=== PATIENT | female | born 1970 | race Caucasian/White ===

== ENCOUNTER 2021-04-06 10:43 | Emergency (ER) | payer BC ==
[2021-04-06 11:13] LABS: BARBITURATE SCREEN,URINE NEGATIVE (NEGATIVE); BENZODIAZEPINES SCREEN,URINE NEGATIVE (NEGATIVE); EDDP,URINE SCREEN NEGATIVE (NEGATIVE); TCA SCREEN,URINE NEGATIVE (NEGATIVE); THC SCREEN,URINE 50 NG/ML NEGATIVE (NEGATIVE)
[2021-04-06 11:16] LABS: BUPRENORPHINE SCREEN,URINE NEGATIVE (NEGATIVE)
[2021-04-06 11:38] LABS: ANION GAP 10.1 meq/L (7-15); CHLORIDE,CL 106 mmol/L (98-107); SODIUM,NA 142 mmol/L (136-145)
[2021-04-06] MEDS ORDERED: LORazepam 1 MG Tab PO ONE (11:48)
--- NOTE | 2021-04-06 12:45 | EDM.PDOC ---
ED HPI GENERAL MEDICAL PROBLEM - General Chief Complaint: General Stated Complaint: nausea, dizzy, anxiety, thirsty, body aches Time Seen by Provider: 04/06/21 10:50 Source of Information: Reports: Patient History Limitations: Reports: No Limitations - History of Present Illness INITIAL COMMENTS - FREE TEXT/NARRATIVE: Patient comes to ER with multiple complaints. These include intermittent dizziness/lightheaded feeling, nausea, anxiety. Complains that the anxiety comes in waves. Feels like she is drinking more water lately. Also complains of muscle aches, more pronounced in arms. Came to ER as she was worried about having possible thyroid storm as she was told by clinic last week that her TSH was very low and thus her supplemental thyroid dose too high. She did cut her dose in half the past week and did not take it today. Feels cold sensitive. Hair is breaking more easily. Has sister with history of Bishop's She gets nauseated easily. Was on gabapentin for aches and it helped but then she discontinued due to nausea. Started on Lyrica, now having some nausea with that since dose increased. Similar issue with CBD oil, initially did well but then stopped due to nausea. She tried calling her psychiatric clinical nurse specialist last week multiple times but received no answer. She tried calling [facility] locally today but unable to get a provider to call her back this morning so she elected to come to ER. Anxious and tearful upon arrival. Jittery. Has been having muscle aches for awhile. The other complaints started the last few weeks. Reports negative Lyme testing. Patient notes that she eats anti-inflammatory diet free of gluten/dairy/processed foods. - Related Data Allergies Allergy/AdvReac Type Severity Reaction Status Date / Time chlorhexidine Allergy Hives Verified 04/06/21 10:51 Home Meds: Home Meds Acetaminophen [Tylenol] 650 mg PO Q4HR PRN 02/26/21 [History] Diclofenac Epolamine [Flector] 1 patch TOP DAILY 02/26/21 [History] Diclofenac Sodium [Voltaren 1% Gel] 1 applic TOP ASDIRECTED PRN 02/26/21 [History] Ibuprofen 400 mg PO Q6HR PRN 02/26/21 [History] Non-Formulary Medication [NF Drug] 1 tab PO DAILY 02/26/21 [History] tiZANidine [Zanaflex] 1 mg PO Q12HR 10/07/21 [History] Diclofenac Sodium/Misoprostol [Diclofenac-Misoprost 75-0.2 mg] 1 tab PO BID 02/20 01/10 [History] Pregabalin [Lyrica] 75 mg PO BID 03/26/21 [History] Past Medical History HEENT History: Reports: Allergic Rhinitis Musculoskeletal History: Reports: Fibromyalgia (potentially) Psychiatric History: Reports: Anxiety Endocrine/Metabolic History: Reports: Hypothyroidism Social & Family History - Tobacco Use Tobacco Use Status *Q: Never Tobacco User - Caffeine Use Caffeine Use: Reports: None - Alcohol Use Alcohol Use History: No - Recreational Drug Use Recreational Drug Use: No Drug Use in Last 12 Months: No ED ROS GENERAL - Review of Systems Review Of Systems: See Below Constitutional: Reports: No Symptoms HEENT: Reports: No Symptoms Respiratory: Reports: No Symptoms Cardiovascular: Reports: Lightheadedness. Denies: Chest Pain, Blood Pressure Problem, Claudication, Dyspnea on Exertion, Edema, Orthopnea, Palpitations, PND, Syncope GI/Abdominal: Reports: Nausea. Denies: Abdominal Pain, Black Stool, Bloody Stool, Constipation, Diarrhea, Decreased Appetite, Distension, Vomiting : Reports: No Symptoms Musculoskeletal: Reports: Muscle Pain (diffuse). Denies: Joint Pain, Joint Swelling Skin: Reports: No Symptoms Neurological: Reports: Dizziness. Denies: Confusion, Headache, Numbness, Paresthesia, Seizure, Syncope, Tingling, Trouble Speaking, Weakness, Change in Speech, Gait Disturbance, Other Psychiatric: Reports: Anxiety Hematologic/Lymphatic: Reports: No Symptoms Immunologic: Reports: Seasonal Allergy ED EXAM, GENERAL - Physical Exam Exam: See Below Exam Limited By: No Limitations General Appearance: Alert, WD/WN, Anxious Eye Exam: Bilateral Eye: EOMI, PERRL Ears: Normal External Exam, Normal Canal, Hearing Grossly Normal, Normal TMs Nose: Normal Inspection. No: Nasal Deformity, Nasal Swelling, Nasal Drainage Throat/Mouth: Normal Inspection, Normal Lips, Normal Oropharynx, Normal Voice, No Airway Compromise Head: Atraumatic, Normocephalic Neck: Normal Inspection, Supple, Non-Tender, Full Range of Motion. No: Lymphadenopathy (L), Lymphadenopathy (R) Respiratory/Chest: No Respiratory Distress, Lungs Clear, Normal Breath Sounds, No Accessory Muscle Use, Chest Non-Tender Cardiovascular: Regular Rate, Rhythm, No Edema, No Murmur GI/Abdominal: Normal Bowel Sounds, Soft, Non-Tender, No Distention (Female) Exam: Deferred Rectal (Female) Exam: Deferred Back Exam: Normal Inspection Extremities: Normal Inspection, Normal Range of Motion, Non-Tender, No Pedal Edema, Normal Capillary Refill Neurological: Alert, Oriented, CN II-XII Intact, Normal Cognition, Normal Gait, No Motor/Sensory Deficits Psychiatric: Anxious Skin Exam: Warm, Dry, Intact, Normal Color #1 Interpretation EKG Date: 04/06/21 Time: 11:10 Rhythm: NSR Rate (Beats/Min): 62 [place]: Normal P-Wave: Present QRS: Normal ST-T: Normal QT: Normal Course - Orders/Labs/Meds Labs: Laboratory Tests 04/06/21 04/06/21 04/06/21 Range/Units 10:25 10:25 11:06 WBC 9.2 (4.0-10.2) K/uL RBC 4.87 (3.77-5.09) M/uL Hgb 15.6 H (11.7-15.5) g/dL Hct 45.4 (34.0-46.0) % MCV 93.2 (84.0-98.0) fL MCH 32.0 (28.2-33.3) pg MCHC 34.4 (31.7-36.0) g/dL RDW 12.5 (11.2-14.1) % Plt Count 239 (150-350) K/uL Neut % (Auto) 68.5 (45.0-80.0) % Lymph % (Auto) 18.0 (10.0-50.0) % [place] % (Auto) 13.2 (2.0-14.0) % Eos % (Auto) 0.2 (0.0-5.0) % Baso % (Auto) 0.1 (0.0-2.0) % Neut # (Auto) 6.32 (1.40-7.00) K/uL Lymph # (Auto) 1.66 (0.50-3.50) K/uL [place] # (Auto) 1.22 H (0.00-1.00) K/uL Eos # (Auto) 0.02 (0.00-0.50) K/uL Baso # (Auto) 0.01 (0.00-0.20) K/uL Sodium (136-145) mmol/L Potassium (3.5-5.1) mmol/L Chloride (98-107) mmol/L Carbon Dioxide (21.0-32.0) mmol/L Anion Gap (7-15) meq/L BUN (7-18) mg/dL Creatinine (0.51-1.17) mg/dL Est Cr Clr Drug Dosing Estimated GFR (MDRD) mL/min Glucose (70-99) mg/dL Calcium (8.5-10.1) mg/dL Magnesium (1.8-2.4) mg/dL Total Bilirubin (0.2-1.0) mg/dL AST (15-37) U/L ALT (12-78) U/L Alkaline Phosphatase (46-116) IU/L Total Protein (6.4-8.2) g/dL Albumin (3.4-5.0) g/dL Free T4 (0.76-1.46) ng/dL TSH, Ultra Sensitive (0.358-3.740) mIU/mL Specimen Type Urinvoid Urine Color Light yellow Urine Appearance Clear Urine pH 7.0 (5.0-9.0) Ur Specific [place] 1.010 (1.005-1.030) Urine Protein Negative (NEGATIVE) mg/dL Urine Glucose (UA) Negative (NEGATIVE) mg/dL Urine Ketones Negative (NEGATIVE) mg/dL Urine Occult Blood Negative (NEGATIVE) Urine Nitrite Negative (NEGATIVE) Urine Bilirubin Negative (NEGATIVE) Urine Urobilinogen 0.2 (0.2-1.0) E.U./dL Ur Leukocyte Esterase Negative (NEGATIVE) Urine Opiates Screen Negative (NEGATIVE) Ur Buprenorphine Scrn Negative (NEGATIVE) Ur Oxycodone Screen Negative (NEGATIVE) Ur EDDP (Meth Metab) Negative (NEGATIVE) Ur Barbiturates Screen Negative (NEGATIVE) Ur Tricyclics Screen Negative (NEGATIVE) Ur Amphetamine Screen Negative (NEGATIVE) U Methamphetamines Scrn Negative (NEGATIVE) Urine MDMA Screen Negative (NEGATIVE) U Benzodiazepines Scrn Negative (NEGATIVE) U Cocaine Metab Screen Negative (NEGATIVE) U Marijuana (THC) Screen Negative (NEGATIVE) SARS-CoV-2 RNA (MARINA) (NEGATIVE) 04/06/21 04/06/21 Range/Units 11:06 11:47 WBC (4.0-10.2) K/uL RBC (3.77-5.09) M/uL Hgb (11.7-15.5) g/dL Hct (34.0-46.0) % MCV (84.0-98.0) fL MCH (28.2-33.3) pg MCHC (31.7-36.0) g/dL RDW (11.2-14.1) % Plt Count (150-350) K/uL Neut % (Auto) (45.0-80.0) % Lymph % (Auto) (10.0-50.0) % [place] % (Auto) (2.0-14.0) % Eos % (Auto) (0.0-5.0) % Baso % (Auto) (0.0-2.0) % Neut # (Auto) (1.40-7.00) K/uL Lymph # (Auto) (0.50-3.50) K/uL [place] # (Auto) (0.00-1.00) K/uL Eos # (Auto) (0.00-0.50) K/uL Baso # (Auto) (0.00-0.20) K/uL Sodium 142 (136-145) mmol/L Potassium 4.1 (3.5-5.1) mmol/L Chloride 106 (98-107) mmol/L Carbon Dioxide 25.9 (21.0-32.0) mmol/L Anion Gap 10.1 (7-15) meq/L BUN 12 (7-18) mg/dL Creatinine 0.77 (0.51-1.17) mg/dL Est Cr Clr Drug Dosing TNP Estimated GFR (MDRD) > 60 mL/min Glucose 95 (70-99) mg/dL Calcium 8.9 (8.5-10.1) mg/dL Magnesium 2.1 (1.8-2.4) mg/dL Total Bilirubin 0.6 (0.2-1.0) mg/dL AST 12 L (15-37) U/L ALT 21 (12-78) U/L Alkaline Phosphatase 45 L (46-116) IU/L Total Protein 7.7 (6.4-8.2) g/dL Albumin 4.1 (3.4-5.0) g/dL Free T4 0.63 L (0.76-1.46) ng/dL TSH, Ultra Sensitive 1.082 (0.358-3.740) mIU/mL Specimen Type Urine Color Urine Appearance Urine pH (5.0-9.0) Ur Specific [place] (1.005-1.030) Urine Protein (NEGATIVE) mg/dL Urine Glucose (UA) (NEGATIVE) mg/dL Urine Ketones (NEGATIVE) mg/dL Urine Occult Blood (NEGATIVE) Urine Nitrite (NEGATIVE) Urine Bilirubin (NEGATIVE) Urine Urobilinogen (0.2-1.0) E.U./dL Ur Leukocyte Esterase (NEGATIVE) Urine Opiates Screen (NEGATIVE) Ur Buprenorphine Scrn (NEGATIVE) Ur Oxycodone Screen (NEGATIVE) Ur EDDP (Meth Metab) (NEGATIVE) Ur Barbiturates Screen (NEGATIVE) Ur Tricyclics Screen (NEGATIVE) Ur Amphetamine Screen (NEGATIVE) U Methamphetamines Scrn (NEGATIVE) Urine MDMA Screen (NEGATIVE) U Benzodiazepines Scrn (NEGATIVE) U Cocaine Metab Screen (NEGATIVE) U Marijuana (THC) Screen (NEGATIVE) SARS-CoV-2 RNA (MARINA) Negative (NEGATIVE) Meds: Medications Discontinued Medications Generic Name Dose Route Start Last Admin Trade Name Freq PRN Reason Stop Dose Admin Lorazepam 1 mg 04/06/21 11:48 04/06/21 11:59 Lorazepam 1 Mg Tab PO 04/06/21 11:49 1 mg ONETIME ONE Administration - Re-Assessments/Exams Free Text/Narrative Re-Assessment/Exam: 04/06/21 15:49 Patient obviously anxious. Tearful at times. CBC/Chem/mag/UA/drug screen/TSH/T4 ordered. Overall unremarkable except for decreased T4 Ambulated well/moved about easily. Patient given an Ativan. Improved. Call placed to [facility] and patient reviewed with Sarah who has seen the patient in the past. Patient scheduled to see her this afternoon. Patient's provider notes that patient has long standing history of anxiety. This may be an acute exacerbation of the chronic anxiety. We discussed having pt be evaluated for Lyme/co-infections again, in addition to being treated for anxiety. Patient to follow up with endocrine but has normal TSH today and should continue her 1/2 doses of Thyroid until she is re-evaluated and has levels rechecked. No additional intervention performed at ER but patient planned to follow up with Magdalena at her scheduled early afternoon appointment 1/2 hour after discharge. Additional Ativan prescription at the discretion of [facility]. Departure - Departure Time of Disposition: 12:43 Disposition: Home, Self-Care 01 Condition: Good Clinical Impression: Feeling anxious, Feeling poorly - Discharge Information *PRESCRIPTION DRUG MONITORING PROGRAM REVIEWED*: Not Applicable *COPY OF PRESCRIPTION DRUG MONITORING REPORT IN PATIENT JOSEPH: Not Applicable Referrals: Shanell Mckeon PA-C [Primary Care Provider] - Forms: ED Department Discharge Additional Instructions: Follow up with your primary provider at scheduled appointment this afternoon. Look into advanced lyme testing. Follow up as needed if you have worsening problems.
== END 2021-04-06 12:47 | disposition home or self-care (01) ==
LOC: LL.ED 10:43
DX: F41.9 Anxiety disorder, unspecified (principal); E03.9 Hypothyroidism, unspecified; Z79.899 Other long term (current) drug therapy; Z20.822 Contact with and (suspected) exposure to COVID-19; Z88.4 Allergy status to anesthetic agent
CPT/HCPCS: 36415; 80053; 80305-QW; 81003; 83735; 84439; 84443; 85025; 93005; 93010; 99284; 99284-25; A9270-GY; U0002

== ENCOUNTER 2021-04-16 09:45 | Observation (INO) | payer BC ==
[2021-04-16] MEDS ORDERED: fentaNYL 100 MCG/2 ML SDV IVPUSH ONE (09:54)
[2021-04-16] MEDS ORDERED: Diazepam 5 MG Tab PO ONE (09:54)
[2021-04-16] MEDS ORDERED: Ketorolac 30 MG/ML SDV IVPUSH ONE ×2 (09:54→17:04)
[2021-04-16] MEDS: Sodium Chloride 0.9% 10 ML Syringe FLUSH PRN ×2 (10:03→20:37)
[2021-04-16 10:28] LABS: ANION GAP 15.4 meq/L (7-15); CHLORIDE,CL 104 mmol/L (98-107); SODIUM,NA 143 mmol/L (136-145)
[2021-04-16] MEDS ORDERED: Lactated Ringers 1,000 ML IV ONE (11:30)
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
[2021-04-16] MEDS ORDERED: HYDROmorphone 1 MG/ML Syringe IVPUSH ONE (17:04)
[2021-04-16] MEDS ORDERED: Sodium Chloride 0.9% 10 ML Syringe FLUSH PRN (17:05)
[2021-04-16] MEDS ORDERED: Ondansetron 4 MG Tab.DIS PO PRN (17:26)
[2021-04-16] MEDS ORDERED: HYDROmorphone 1 MG/ML Syringe IVPUSH PRN (17:26)
--- NOTE | 2021-04-16 17:37 | PCM.HP.2 ---
H&P History of Present Illness - General Date of Service: 04/16/21 Admit Problem/Dx: Admission Diagnosis/Problem Admission Diagnosis/Problem Acute pain Source of Information: Patient - History of Present Illness Initial Comments - Free Text/Narative: Hailee is a 50 y/o female who returns this evening to the hospital with acute pain in her midchest region that radiates into her left shoulder. Please refer to the ER note from earlier today. Patient has been having ongoing workup for the pain in her left shoulder and upper back/neck region. She was had several steroid injections by pain management in the last couple weeks. Her PCP has ordered MRI studies for her to be done on Tuesday in [place]. Most concerning to he r is that she cannot really relax to rest and then when she tries to take a deep breath, her chest hurts. Today she was given Toradol, Fentanyl, and Diazepam in the ER and her sx i mproved. She had negative lab studies, a negative EKG, and negative CXR. She did go home and tried to manage her sx with various meds that she has at home. She took Valium 10mg po at about 4 pm today and the pain had become unbearable and she just couldn't take it. She is back to the hospital and will admit her to Observation for pain control. Chest Pain Score (Numeric/FACES): 10 - Related Data Allergies/Adverse Reactions: Allergies Allergy/AdvReac Type Severity Reaction Status Date / Time chlorhexidine Allergy Rash Verified 04/16/21 17:33 Sulfa (Sulfonamide Allergy Rash Verified 04/16/21 17:32 Antibiotics) pregabalin [From Lyrica] AdvReac Hallucinati Verified 04/16/21 17:06 ons Home Medications: Home Meds Acetaminophen [Tylenol] 650 mg PO Q4HR PRN 02/26/21 [History] Diclofenac Epolamine [Flector] 1 patch TOP DAILY 02/26/21 [History] Diclofenac Sodium [Voltaren 1% Gel] 1 applic TOP ASDIRECTED PRN 02/26/21 [History] Ibuprofen 400 mg PO Q6HR PRN 02/26/21 [History] Non-Formulary Medication [NF Drug] 1 tab PO DAILY 02/26/21 [History] tiZANidine [Zanaflex] 1 mg PO Q12HR 02/26/21 [History] Diclofenac Sodium/Misoprostol [Diclofenac-Misoprost 75-0.2 mg] 1 tab PO BID 03/09/21 [History] Ketorolac [Toradol] 10 mg PO Q6H PRN 04/09/21 [History] LORazepam [Ativan] 0.5 mg PO Q4H PRN 04/09/21 [History] diazePAM [Valium.] 5 - 10 mg PO ASDIRECTED PRN 04/09/21 [History] Past Medical History HEENT History: Reports: Allergic Rhinitis Musculoskeletal History: Reports: Back Pain, Chronic, Fibromyalgia Neurological History: Reports: Headaches, Chronic, Migraines Psychiatric History: Reports: Anxiety Endocrine/Metabolic History: Reports: Hypothyroidism Social & Family History - Caffeine Use Caffeine Use: Reports: None H&P Review of Systems - Review of Systems: Review Of Systems: See Below General: Reports: No Symptoms HEENT: Reports: No Symptoms Pulmonary: Reports: No Symptoms Cardiovascular: Reports: No Symptoms Gastrointestinal: Reports: No Symptoms Genitourinary: Reports: No Symptoms Musculoskeletal: Reports: Shoulder Pain, Back Pain (Left shoulder/upper back region) Skin: Reports: No Symptoms Psychiatric: Reports: No Symptoms Neurological: Reports: No Symptoms Hematologic/Lymphatic: Reports: No Symptoms Immunologic: Reports: No Symptoms Exam - Exam Exam: See Below - Vital Signs Vital Signs: Last Vital Signs Temp 36.6 C 04/16/21 09:46 Pulse 121 H 04/16/21 09:46 Resp 20 04/16/21 09:46 BP 124/100 H 04/16/21 09:46 Pulse Ox 100 04/16/21 09:46 Weight: 68.039 kg - Exam General: Alert, Oriented (Adult female, appears a bit more comfortbale than she did this AM, but still somewhat anxious.) HEENT: Conjunctiva Clear, Mucosa Moist & [place], Nares Patent Neck: Supple Lungs: Clear to Auscultation, Normal Respiratory Effort, Other (Note mild tenderness over mid-chest region with palpation.) Cardiovascular: Regular Rate, Regular Rhythm GI/Abdominal Exam: Normal Bowel Sounds, Soft (Female) Exam: Deferred Rectal (Female) Exam: Deferred Back Exam: Normal Inspection. No: Paraspinal Tenderness, Vertebral Tenderness Extremities: Normal Inspection, Normal Range of Motion, No Pedal Edema, Normal Capillary Refill Skin: Warm, Dry, Intact Neurological: Cranial Nerves Intact Neuro Extensive - Mental Status: Alert, Oriented x3, Normal Mood/Affect Neuro Extensive - Motor, Sensory, Reflexes: CN II-XII Intact, Normal Gait Psychiatric: Alert, Anxious - Patient Data Lab Results Last 24 hrs: Laboratory Results - last 24 hr 04/16/21 04/16/21 04/16/21 Range/Units 10:05 10:05 10:05 WBC 10.4 H (4.0-10.2) K/uL RBC 4.61 (3.77-5.09) M/uL Hgb 14.9 (11.7-15.5) g/dL Hct 43.2 (34.0-46.0) % MCV 93.7 (84.0-98.0) fL MCH 32.3 (28.2-33.3) pg MCHC 34.5 (31.7-36.0) g/dL RDW 12.7 (11.2-14.1) % Plt Count 324 D (150-350) K/uL Neut % (Auto) 77.7 (45.0-80.0) % Lymph % (Auto) 13.1 (10.0-50.0) % [place] % (Auto) 8.7 (2.0-14.0) % Eos % (Auto) 0.2 (0.0-5.0) % Baso % (Auto) 0.3 (0.0-2.0) % Neut # (Auto) 8.10 H (1.40-7.00) K/uL Lymph # (Auto) 1.37 (0.50-3.50) K/uL [place] # (Auto) 0.91 (0.00-1.00) K/uL Eos # (Auto) 0.02 (0.00-0.50) K/uL Baso # (Auto) 0.03 (0.00-0.20) K/uL Sodium 143 (136-145) mmol/L Potassium 3.8 (3.5-5.1) mmol/L Chloride 104 (98-107) mmol/L Carbon Dioxide 23.6 (21.0-32.0) mmol/L Anion Gap 15.4 H (7-15) meq/L BUN 10 (7-18) mg/dL Creatinine 0.72 (0.51-1.17) mg/dL Est Cr Clr Drug Dosing 85.05 mL/min Estimated GFR (MDRD) > 60 mL/min Glucose 105 H (70-99) mg/dL Calcium 8.9 (8.5-10.1) mg/dL Magnesium 2.0 (1.8-2.4) mg/dL Total Bilirubin 0.9 (0.2-1.0) mg/dL AST 9 L (15-37) U/L ALT 15 (12-78) U/L Alkaline Phosphatase 45 L (46-116) IU/L Troponin I High Sens 8 (<=51) ng/L Total Protein 7.2 (6.4-8.2) g/dL Albumin 4.0 (3.4-5.0) g/dL Result Diagrams: 04/16/21 10:05 04/16/21 10:05 Sepsis Event Note - Evaluation Sepsis Screening Result: No Definite Risk - Focused Exam Vital Signs: Vital Signs Temp Pulse Resp BP Pulse Ox 04/16/21 09:46 36.6 C 121 H 20 124/100 H 100 - Problem List (1) Muscle spasm SNOMED Code(s): 03581307 ICD Code: M62.838 - OTHER MUSCLE SPASM Status: Acute Current Visit: Yes Problem Details: Sx all secondary to comditions discussed, including 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 Pain improved in the ER with meds given this AM. Will admit her to Observation for pain management. Will order scheduled Toradol and prn Dilaudid for the pain. Also will continue the Valium prn. Patient has MRIs scheduled for Tuesday in [place]. Consideration given to IV steroids, but patient questions of she is anxious as a result of all the recent steroid injections that she has had with Pain Management, so will hold off for now on the steroids. (2) Anxiety about health SNOMED Code(s): 025875647 ICD Code: F41.8 - OTHER SPECIFIED ANXIETY DISORDERS Status: Acute Current Visit: Yes Problem Details: Suspect this exacerbates the pain she has. Hydroxyzine ordered. Problem List Initiated/Reviewed/Updated: Yes Orders Last 24hrs: Active Orders 24 hr Category Date Time Status Patient Status [ADT] Routine ADT 04/16/21 17:26 Ordered Ambulate [RC] PER UNIT ROUTINE Care 04/16/21 17:28 Ordered Cardiac Monitoring [RC] Q2HR Care 04/16/21 17:09 Active EKG Documentation Completion [RC] STAT Care 04/16/21 09:54 Active Overnight Pulse Oximetry [RC] Click to Edit Care 04/16/21 17:10 Active Oxygen Therapy [RC] PRN Care 04/16/21 17:26 Ordered Peripheral IV Care [RC] . DIRECTED Care 04/16/21 17:05 Active Up ad Hafsa [RC] ASDIRECTED Care 04/16/21 17:26 Ordered VTE/DVT Education [RC] PER UNIT ROUTINE Care 04/16/21 17:26 Ordered Vital Signs [RC] Q4H Care 04/16/21 17:26 Ordered Regular Diet [DIET] Diet 04/16/21 Dinner Ordered Acetaminophen [TylenoL] Med 04/16/21 17:31 Ordered 650 mg PO Q4HR PRN HYDROmorphone [Dilaudid] Med 04/16/21 17:26 Ordered 0.5 - 1 mg IVPUSH Q2H PRN Ketorolac [Toradol] Med 04/16/21 17:26 Ordered 30 mg IVPUSH Q6H PRN Ondansetron [Zofran ODT] Med 04/16/21 17:26 Ordered 4 mg PO Q4H PRN Ondansetron [Zofran] Med 04/16/21 17:26 Ordered 4 mg IVPUSH Q4H PRN Sodium Chloride 0.9% [Saline Flush] Med 04/16/21 09:54 Active 10 ml FLUSH ASDIRECTED PRN Sodium Chloride 0.9% [Saline Flush] Med 04/16/21 17:05 Active 10 ml FLUSH ASDIRECTED PRN diazePAM [Valium.] Med 04/16/21 17:45 Ordered 5 mg PO Q6H Peripheral IV Insertion Adult [OM.PC] Routine Oth 04/16/21 17:05 Ordered Pulse Oximetry Continuous Monitoring [OM.PC] Routine Oth 04/16/21 17:09 Ordered Saline Lock Insert [OM.PC] Stat Oth 04/16/21 09:54 Ordered Resuscitation Status Routine Resus Stat 04/16/21 17:26 Ordered Medication Orders Acetaminophen (Acetaminophen 325 Mg Tab) 650 mg PO Q4HR PRN PRN Reason: Pain Diazepam (Diazepam 5 Mg Tab) 5 mg PO Q6H BARRIE Hydromorphone HCl (Hydromorphone 1 Mg/Ml Syringe) 0.5 - 1 mg IVPUSH Q2H PRN PRN Reason: Pain (severe 7-10) Ketorolac Tromethamine (Ketorolac 30 Mg/Ml Sdv) 30 mg IVPUSH Q6H PRN PRN Reason: Pain (moderate 4-6) Ondansetron HCl (Ondansetron 4 Mg Tab.Dis) 4 mg PO Q4H PRN PRN Reason: Nausea/Vomiting Ondansetron HCl (Ondansetron 4 Mg/2 Ml Sdv) 4 mg IVPUSH Q4H PRN PRN Reason: Nausea/Vomiting Sodium Chloride (Sodium Chloride 0.9% 10 Ml Syringe) 10 ml FLUSH ASDIRECTED PRN PRN Reason: Keep Vein Open Last Admin: 04/16/21 10:03 Dose: 10 ml Documented by: ANUSHA Sodium Chloride (Sodium Chloride 0.9% 10 Ml Syringe) 10 ml FLUSH ASDIRECTED PRN PRN Reason: Keep Vein Open Assessment/Plan Comment:: Will get patient comfortable and help her rest. Hold off on steroids at this time. Will add in some Hydroxyzine for her anxiety, but is she is having any reaction to the steroids, perhaps the Hydroxyzine will alleviate some of those sx. Caprice Bailon PA-C to assume care of the patient in the AM. - Mortality Measure Prognosis:: Good
[2021-04-16] MEDS: Ondansetron 4 MG/2 ML SDV IVPUSH PRN (17:58)
[2021-04-16] MEDS: Diazepam 5 MG Tab PO SCH ×2 (18:05→22:14)
[2021-04-16] MEDS ORDERED: hydrOXYzine Pamoate 25 MG Cap PO SCH (20:00)
[2021-04-17] MEDS: Diazepam 5 MG Tab PO SCH ×3 (03:38→07:16)
[2021-04-17] MEDS: Acetaminophen 325 MG Tab PO PRN ×3 (06:16→16:04)
[2021-04-17] MEDS: hydrOXYzine Pamoate 25 MG Cap PO PRN ×3 (06:19→13:11)
[2021-04-17] MEDS: Ketorolac 30 MG/ML SDV IVPUSH PRN ×2 (10:46→16:06)
[2021-04-17] MEDS: Sodium Chloride 0.9% 10 ML Syringe FLUSH PRN ×2 (10:47→13:21)
[2021-04-17] MEDS: Ondansetron 4 MG/2 ML SDV IVPUSH PRN (13:21)
--- NOTE | 2021-04-17 15:41 | PCM.DCSUM1 ---
Discharge Summary - Hospital Course Free Text/Narrative:: see below Brief History: Hailee presented to the ED with uncontrolled acute on chronic pain in her left arm. she also stated she had some "chest" pain. EKG negative for acute ischemia, no trop elevation, normal tele throughout stay. She was also having significant anxiety. on admit there were no new test or imaging findings. She was initially discharge home but returned when her pain continued. She was admitted on observation secondary to uncontrolled pain. 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 narcotics and benzodiazepines were discontinued and it was explained that chronic pain is best treated with behavioral modification. Anxiety is best treated with long acting anxiolytic vs ativan. She is amenable to these changes, was thought to be medically stable for discharge and was discharged home on the afternoon of 04/17/21 Diagnosis: Stroke: No Modified [place] Scale: No Symptoms at All Modified Skyler Scale Score: 0 - Discharge Data Discharge Date: 04/17/21 Discharge Disposition: Home, Self-Care 01 Condition: Good - Referral to Home Health Primary Care Physician: PCP Unknown - Discharge Diagnosis/Problem(s) (1) Anxiety about health SNOMED Code(s): 842876288 ICD Code: F41.8 - OTHER SPECIFIED ANXIETY DISORDERS Status: Acute Current Visit: Yes Problem Details: Suspect this exacerbates the pain she has. Hydroxyzine ordered. - Patient Instructions Diet: Usual Diet as Tolerated - Discharge Plan *PRESCRIPTION DRUG MONITORING PROGRAM REVIEWED*: Not Applicable *COPY OF PRESCRIPTION DRUG MONITORING REPORT IN PATIENT JOSEPH: Not Applicable Prescriptions/Med Rec: DULoxetine [Cymbalta] 30 mg PO DAILY #30 cap hydrOXYzine pamoate [Hydroxyzine Pamoate] 50 mg PO TID PRN 30 Days capsule PRN Reason: Anxiety Home Medications: Home Meds Acetaminophen [Tylenol] 650 mg PO Q4HR PRN 02/26/21 [History] Diclofenac Epolamine [Flector] 1 patch TOP DAILY 02/26/21 [History] Diclofenac Sodium [Voltaren 1% Gel] 1 applic TOP ASDIRECTED PRN 02/26/21 [History] Ibuprofen 400 mg PO Q6HR PRN 02/26/21 [History] Non-Formulary Medication [NF Drug] 1 tab PO DAILY 02/26/21 [History] LORazepam [Ativan] 0.5 mg PO Q4H PRN 04/09/21 [History] diazePAM [Valium.] 5 - 10 mg PO ASDIRECTED PRN 04/09/21 [History] L.acidoph,Paracasei, B.lactis [Probiotic] 1 each PO DAILY 04/16/21 [History] Multivitamin 1 each PO DAILY 04/16/21 [History] Non-Formulary Medication [NF Drug] 1 dose PO ASDIRECTED 04/16/21 [History] Non-Formulary Medication [NF Drug] 3 cap PO ASDIRECTED 04/16/21 [History] DULoxetine [Cymbalta] 30 mg PO DAILY #30 cap 04/17/21 [Rx] hydrOXYzine pamoate [Hydroxyzine Pamoate] 50 mg PO TID PRN 30 Days capsule 04/17/21 [Rx] Oxygen Therapy Mode: Room Air Patient Handouts: Muscle Cramps and Spasms, Managing Anxiety, Adult Forms: ED Department Discharge Referrals: Janey Lozano MD [Physician] - - Discharge Summary/Plan Comment DC Time >30 min.: Yes Total # of Minutes for Discharge Time: 60 - General Info Date of Service: 04/17/21 Admission Dx/Problem (Free Text: Admission Diagnosis/Problem Admission Diagnosis/Problem Acute pain Functional Status: Denies: Pain Controlled Numeric/FACES Score: 8 (pain subjective and appears to wax and wane dependent upon level of anxiety present. ) - Review of Systems General: Reports: No Symptoms HEENT: Reports: No Symptoms Pulmonary: Reports: No Symptoms Cardiovascular: Reports: No Symptoms Gastrointestinal: Reports: No Symptoms Musculoskeletal: Reports: Other (left arm and shoulder pain. non reproducible. ) Skin: Reports: No Symptoms Neurological: Reports: No Symptoms Psychiatric: Reports: No Symptoms - Patient Data Vitals - Most Recent: Last Vital Signs Temp 98.8 F 04/17/21 12:00 Pulse 88 04/17/21 12:00 Resp 14 04/17/21 12:00 BP 112/77 04/17/21 12:00 Pulse Ox 98 04/17/21 12:00 Weight - Most Recent: 150 lb Med Orders - Current: Current Medications Acetaminophen (Acetaminophen 325 Mg Tab) 650 mg PO Q4HR PRN PRN Reason: Pain Last Admin: 04/17/21 12:34 Dose: 650 mg Documented by: Hydroxyzine Pamoate (Hydroxyzine Pamoate 25 Mg Cap) 25 mg PO Q6H PRN PRN Reason: Anxiety Last Admin: 04/17/21 13:11 Dose: 25 mg Documented by: Ketorolac Tromethamine (Ketorolac 30 Mg/Ml Sdv) 30 mg IVPUSH Q6H PRN PRN Reason: Pain (moderate 4-6) Last Admin: 04/17/21 10:46 Dose: 30 mg Documented by: Ondansetron HCl (Ondansetron 4 Mg Tab.Dis) 4 mg PO Q4H PRN PRN Reason: Nausea/Vomiting Last Admin: 04/17/21 07:16 Dose: 4 mg Documented by: Ondansetron HCl (Ondansetron 4 Mg/2 Ml Sdv) 4 mg IVPUSH Q4H PRN PRN Reason: Nausea/Vomiting Last Admin: 04/17/21 13:21 Dose: 4 mg Documented by: Sodium Chloride (Sodium Chloride 0.9% 10 Ml Syringe) 10 ml FLUSH ASDIRECTED PRN PRN Reason: Keep Vein Open Last Admin: 04/17/21 13:21 Dose: 10 ml Documented by: Sodium Chloride (Sodium Chloride 0.9% 10 Ml Syringe) 10 ml FLUSH ASDIRECTED PRN PRN Reason: Keep Vein Open Discontinued Medications Diazepam (Diazepam 5 Mg Tab) 10 mg PO ONETIME ONE Stop: 04/16/21 09:55 Last Admin: 04/16/21 10:02 Dose: 10 mg Documented by: Diazepam (Diazepam 5 Mg Tab) 5 mg PO Q6H BARRIE Last Admin: 04/17/21 07:16 Dose: 5 mg Documented by: Fentanyl (Fentanyl 100 Mcg/2 Ml Sdv) 100 mcg IVPUSH ONETIME ONE Stop: 04/16/21 09:55 Last Admin: 04/16/21 09:59 Dose: 100 mcg Documented by: Hydromorphone HCl (Hydromorphone 1 Mg/Ml Syringe) 1 mg IVPUSH ONETIME ONE Stop: 04/16/21 17:05 Last Admin: 04/16/21 17:25 Dose: 1 mg Documented by: Hydromorphone HCl (Hydromorphone 1 Mg/Ml Syringe) 0.5 - 1 mg IVPUSH Q2H PRN PRN Reason: Pain (severe 7-10) Hydroxyzine Pamoate (Hydroxyzine Pamoate 25 Mg Cap) 100 mg PO BEDTIME BARRIE Stop: 04/16/21 20:01 Last Admin: 04/16/21 20:37 Dose: 100 mg Documented by: Lactated Ringer's (Ringers, Lactated) 1,000 mls @ 999 mls/hr IV .BOLUS ONE Stop: 04/16/21 12:30 Last Admin: 04/16/21 11:38 Dose: 999 mls/hr Documented by: Ketorolac Tromethamine (Ketorolac 30 Mg/Ml Sdv) 30 mg IVPUSH ONETIME ONE Stop: 04/16/21 09:55 Last Admin: 04/16/21 10:01 Dose: 30 mg Documented by: Ketorolac Tromethamine (Ketorolac 30 Mg/Ml Sdv) 30 mg IVPUSH ONETIME ONE Stop: 04/16/21 17:05 Last Admin: 04/16/21 17:35 Dose: 30 mg Documented by: - Exam Quality Assessment: Denies: Supplemental Oxygen, Urine Catheter, DVT Prophylaxis, Skin Breakdown General: Reports: Alert, Oriented, Other (anxious) HEENT: Reports: EOMI Lungs: Reports: Clear to Auscultation, Normal Respiratory Effort Cardiovascular: Reports: Regular Rate, Regular Rhythm Extremities: Normal Inspection, Normal Range of Motion, Non-Tender Skin: Reports: Warm, Dry Neurological: Reports: No New Focal Deficit Psy/Mental Status: Reports: Alert, Labile Mood, Anxious *Q Meaningful Use (DIS) - VTE *Q VTE Mechanical Contraindications *Q: Tx/Proc Refused byPt VTE Pharmacological Contraindications *Q: Tx/Proc Refused by Pt VTE Anticoagulation Contraindications: Tx/proc Refused by PT - Stroke *Q Aspirin Contraindications Stroke *Q: Patient Refusal Anticoagulation Contraindications Stroke *Q: TX/PROC Refused by PT Antithrombotic Contraindications Stroke *Q: TX/PROC Refused by PT Statin Contraindications Stroke *Q: TX/PROC Refused by PT Rehabilitation Assessment Contraindication *Q: Tx/proc refused by pt - AMI *Q Aspirin Contraindications AMI *Q: TX/PROC Refused by PT Statin Contraindications AMI *Q: TX/Proc Refused by PT
== END 2021-04-17 17:13 | disposition home or self-care (01) ==
LOC: LL.ED 09:45 → LL.MS 16:59
PROVIDERS: ADMIT Nurse Practitioner Family; ATTEND Nurse Practitioner Family
DX: R07.9 Chest pain, unspecified (principal); E03.9 Hypothyroidism, unspecified; M62.838 Other muscle spasm; F41.8 Other specified anxiety disorders; Z88.8 Allergy status to other drugs, medicaments and biological substances; Z88.2 Allergy status to sulfonamides; Z79.899 Other long term (current) drug therapy
CPT/HCPCS: 36415; 80053; 83735; 84484; 85025; 96374; 96375; 99285; A9270; J1170; J1885; J2405; J3010; J7120; Q0177; 96376; G0378

== ENCOUNTER 2021-04-24 12:41 | Emergency (ER) | payer BC ==
[2021-04-24] MEDS ORDERED: Sodium Chloride 0.9% 10 ML Syringe FLUSH PRN (13:04)
[2021-04-24] MEDS ORDERED: LORazepam 2 MG/ML SDV IVPUSH ONE (13:23)
[2021-04-24] MEDS ORDERED: GI Cocktail Oral Solution 30 ML PO ONE (13:24)
--- NOTE | 2021-04-24 13:41 | EDM.PDOC ---
ED HPI GENERAL MEDICAL PROBLEM - General Chief Complaint: Chest Pain Stated Complaint: Chest Pain/Chest Pressure Time Seen by Provider: 04/24/21 13:00 Source of Information: Reports: Patient History Limitations: Reports: No Limitations - History of Present Illness INITIAL COMMENTS - FREE TEXT/NARRATIVE: Patient comes to ER with complaint of left sided chest pain. Began suddenly approx 90 min prior to presenting to ER. Has had this pain before, and was seen for same complaint recently/kept overnight for formal rule out HI. Unremarkable previous workup. Has had shoulder surgery on left shoulder and was told by one of her providers that they think the pain is from the shoulder. Recently performed/unremarkable neck MRI. Patient's main concern is that her father from [place] in early 50s and a brother has had bypass surgery. Recently got of Lyrica and says that since stopping the medication her anxiety has amplified. No real change in pain with position/breathing/lifting arm. No accompanying SOB/respiratory changes. No other acute changes per ROS. - Related Data Allergies Allergy/AdvReac Type Severity Reaction Status Date / Time chlorhexidine Allergy Rash Verified 04/16/21 17:33 Sulfa (Sulfonamide Allergy Rash Verified 04/16/21 17:32 Antibiotics) pregabalin [From Lyrica] AdvReac Hallucinati Verified 04/16/21 17:06 ons Home Meds: Home Meds Acetaminophen [Tylenol] 650 mg PO Q4HR PRN 02/26/21 [History] Diclofenac Epolamine [Flector] 1 patch TOP DAILY 02/26/21 [History] Diclofenac Sodium [Voltaren 1% Gel] 1 applic TOP ASDIRECTED PRN 02/26/21 [History] Ibuprofen 400 mg PO Q6HR PRN 02/26/21 [History] Non-Formulary Medication [NF Drug] 1 tab PO DAILY 02/26/21 [History] LORazepam [Ativan] 0.5 mg PO Q4H PRN 04/09/21 [History] diazePAM [Valium.] 5 - 10 mg PO ASDIRECTED PRN 04/09/21 [History] L.acidoph,Paracasei, B.lactis [Probiotic] 1 each PO DAILY 04/16/21 [History] Multivitamin 1 each PO DAILY 04/16/21 [History] Non-Formulary Medication [NF Drug] 1 dose PO ASDIRECTED 04/16/21 [History] Non-Formulary Medication [NF Drug] 3 cap PO ASDIRECTED 04/16/21 [History] DULoxetine [Cymbalta] 30 mg PO DAILY #30 cap 04/17/21 [Rx] hydrOXYzine pamoate [Hydroxyzine Pamoate] 50 mg PO TID PRN 30 Days capsule 04/17/21 [Rx] Past Medical History HEENT History: Reports: Allergic Rhinitis [employer] History: Reports: Musculoskeletal History: Reports: Back Pain, Chronic, Fibromyalgia Neurological History: Reports: Headaches, Chronic, Migraines Psychiatric History: Reports: Anxiety Endocrine/Metabolic History: Reports: Hypothyroidism - Past Surgical History Female Surgical History: Reports: Section Musculoskeletal Surgical History: Reports: Arthroscopic Procedure, Other (See Below) Other Musculoskeletal Surgeries/Procedures:: spinal surgery Social & Family History - Tobacco Use Tobacco Use Status *Q: Never Tobacco User - Caffeine Use Caffeine Use: Reports: None - Alcohol Use Alcohol Use History: No - Recreational Drug Use Recreational Drug Use: No Drug Use in Last 12 Months: No ED ROS GENERAL - Review of Systems Review Of Systems: See Below Constitutional: Reports: No Symptoms HEENT: Reports: No Symptoms Respiratory: Reports: No Symptoms Cardiovascular: Reports: Chest Pain. Denies: Dyspnea on Exertion, Edema, Lightheadedness, Palpitations, Syncope GI/Abdominal: Reports: No Symptoms : Reports: No Symptoms Musculoskeletal: Reports: Shoulder Pain Skin: Reports: No Symptoms Neurological: Reports: No Symptoms. Denies: Numbness Psychiatric: Reports: Anxiety Hematologic/Lymphatic: Reports: No Symptoms ED EXAM, GENERAL - Physical Exam Exam: See Below Exam Limited By: No Limitations General Appearance: Alert, WD/WN, Moderate Distress Eye Exam: Bilateral Eye: EOMI, PERRL Ears: Normal External Exam, Normal Canal, Hearing Grossly Normal Nose: No: Nasal Deformity, Nasal Swelling, Nasal Drainage Throat/Mouth: Normal Lips, Normal Voice, No Airway Compromise Head: Atraumatic, Normocephalic Neck: Normal Inspection, Supple, Non-Tender, Full Range of Motion Respiratory/Chest: No Respiratory Distress, Lungs Clear, Normal Breath Sounds, No Accessory Muscle Use, Chest Non-Tender Cardiovascular: Regular Rate, Rhythm, No Edema, No Murmur GI/Abdominal: Normal Bowel Sounds, Soft, Non-Tender, No Distention (Female) Exam: Deferred Rectal (Female) Exam: Deferred Back Exam: No: CVA Tenderness (L), CVA Tenderness (R), Muscle Spasm, Paraspinal Tenderness, Vertebral Tenderness Extremities: Normal Inspection, Normal Range of Motion, Non-Tender, Normal Capillary Refill Neurological: Alert, Oriented, CN II-XII Intact, Normal Cognition, Normal Gait Psychiatric: Anxious Skin Exam: Warm, Dry, Intact, Normal Color #1 Interpretation EKG Date: 04/24/21 Time: 13:16 Rhythm: NSR Rate (Beats/Min): 82 [place]: Normal P-Wave: Present QRS: Normal ST-T: Normal QT: Normal Comparison: No Change (from 04/16/21) Course - Vital Signs Last Recorded V/S: Last Vital Signs Temp 36.4 C 04/24/21 13:46 Pulse 86 04/24/21 13:51 Resp 20 04/24/21 13:51 BP 119/73 04/24/21 13:51 Pulse Ox 100 04/24/21 13:51 - Orders/Labs/Meds Orders: Active Orders 24 hr Category Date Time Status Chest 2V [CR] Stat Exams 04/24/21 13:01 Taken Saline Lock Insert [OM.PC] Routine Oth 04/24/21 13:04 Ordered Labs: Laboratory Tests 04/24/21 04/24/21 04/24/21 Range/Units 13:00 13:35 13:35 WBC 9.8 (4.0-10.2) K/uL RBC 4.38 (3.77-5.09) M/uL Hgb 14.3 (11.7-15.5) g/dL Hct 41.2 (34.0-46.0) % MCV 94.1 (84.0-98.0) fL MCH 32.6 (28.2-33.3) pg MCHC 34.7 (31.7-36.0) g/dL RDW 12.7 (11.2-14.1) % Plt Count 244 D (150-350) K/uL Neut % (Auto) 75.1 (45.0-80.0) % Lymph % (Auto) 13.1 (10.0-50.0) % [place] % (Auto) 11.0 (2.0-14.0) % Eos % (Auto) 0.4 (0.0-5.0) % Baso % (Auto) 0.4 (0.0-2.0) % Neut # (Auto) 7.36 H (1.40-7.00) K/uL Lymph # (Auto) 1.29 (0.50-3.50) K/uL [place] # (Auto) 1.08 H (0.00-1.00) K/uL Eos # (Auto) 0.04 (0.00-0.50) K/uL Baso # (Auto) 0.04 (0.00-0.20) K/uL D-Dimer, Quantitative (0-400) ng/mL Sodium 144 (136-145) mmol/L Potassium 3.7 (3.5-5.1) mmol/L Chloride 107 (98-107) mmol/L Carbon Dioxide 24.8 (21.0-32.0) mmol/L Anion Gap 12.2 (7-15) meq/L BUN 14 (7-18) mg/dL Creatinine 0.74 (0.51-1.17) mg/dL Est Cr Clr Drug Dosing TNP Estimated GFR (MDRD) > 60 mL/min Glucose 99 (70-99) mg/dL Lactic Acid (0.4-2.0) mmol/L Calcium 8.7 (8.5-10.1) mg/dL Magnesium 2.4 (1.8-2.4) mg/dL Total Bilirubin 0.4 (0.2-1.0) mg/dL AST 10 L (15-37) U/L ALT 18 (12-78) U/L Alkaline Phosphatase 42 L (46-116) IU/L Troponin I High Sens 5 (<=51) ng/L NT-Pro-B Natriuret Pep 29 (0-125) pg/mL Total Protein 7.2 (6.4-8.2) g/dL Albumin 3.9 (3.4-5.0) g/dL Specimen Type Urinvoid Urine Color Yellow Urine Appearance Clear Urine pH 7.5 (5.0-9.0) Ur Specific [address] 1.015 (1.005-1.030) Urine Protein Negative (NEGATIVE) mg/dL Urine Glucose (UA) Negative (NEGATIVE) mg/dL Urine Ketones Negative (NEGATIVE) mg/dL Urine Occult Blood Large H (NEGATIVE) Urine Nitrite Negative (NEGATIVE) Urine Bilirubin Negative (NEGATIVE) Urine Urobilinogen 0.2 (0.2-1.0) E.U./dL Ur Leukocyte Esterase Negative (NEGATIVE) Urine RBC 10-20 H /HPF Urine WBC 0-5 /HPF Ur Epithelial Cells Few /LPF 04/24/21 04/24/21 04/24/21 Range/Units 13:35 13:35 19:18 WBC (4.0-10.2) K/uL RBC (3.77-5.09) M/uL Hgb (11.7-15.5) g/dL Hct (34.0-46.0) % MCV (84.0-98.0) fL MCH (28.2-33.3) pg MCHC (31.7-36.0) g/dL RDW (11.2-14.1) % Plt Count (150-350) K/uL Neut % (Auto) (45.0-80.0) % Lymph % (Auto) (10.0-50.0) % [place] % (Auto) (2.0-14.0) % Eos % (Auto) (0.0-5.0) % Baso % (Auto) (0.0-2.0) % Neut # (Auto) (1.40-7.00) K/uL Lymph # (Auto) (0.50-3.50) K/uL [place] # (Auto) (0.00-1.00) K/uL Eos # (Auto) (0.00-0.50) K/uL Baso # (Auto) (0.00-0.20) K/uL D-Dimer, Quantitative < 100 (0-400) ng/mL Sodium (136-145) mmol/L Potassium (3.5-5.1) mmol/L Chloride (98-107) mmol/L Carbon Dioxide (21.0-32.0) mmol/L Anion Gap (7-15) meq/L BUN (7-18) mg/dL Creatinine (0.51-1.17) mg/dL Est Cr Clr Drug Dosing Estimated GFR (MDRD) mL/min Glucose (70-99) mg/dL Lactic Acid 1.4 (0.4-2.0) mmol/L Calcium (8.5-10.1) mg/dL Magnesium (1.8-2.4) mg/dL Total Bilirubin (0.2-1.0) mg/dL AST (15-37) U/L ALT (12-78) U/L Alkaline Phosphatase (46-116) IU/L Troponin I High Sens < 4 (<=51) ng/L NT-Pro-B Natriuret Pep (0-125) pg/mL Total Protein (6.4-8.2) g/dL Albumin (3.4-5.0) g/dL Specimen Type Urine Color Urine Appearance Urine pH (5.0-9.0) Ur Specific [address] (1.005-1.030) Urine Protein (NEGATIVE) mg/dL Urine Glucose (UA) (NEGATIVE) mg/dL Urine Ketones (NEGATIVE) mg/dL Urine Occult Blood (NEGATIVE) Urine Nitrite (NEGATIVE) Urine Bilirubin (NEGATIVE) Urine Urobilinogen (0.2-1.0) E.U./dL Ur Leukocyte Esterase (NEGATIVE) Urine RBC /HPF Urine WBC /HPF Ur Epithelial Cells /LPF Meds: Medications Discontinued Medications Generic Name Dose Route Start Last Admin Trade Name Freq PRN Reason Stop Dose Admin Al Hydroxide/Mg Hydroxide 30 ml 04/24/21 13:24 04/24/21 13:37 Gi Cocktail Oral Solution 30 Ml PO 04/24/21 13:25 30 ml ONETIME ONE Administration Lorazepam 1 mg 04/24/21 13:23 04/24/21 13:37 Lorazepam 2 Mg/Ml Sdv IVPUSH 04/24/21 13:24 1 mg ONETIME ONE Administration Sodium Chloride 10 ml 04/24/21 13:04 Sodium Chloride 0.9% 10 Ml Syringe FLUSH ASDIRECTED PRN Keep Vein Open - Re-Assessments/Exams Free Text/Narrative Re-Assessment/Exam: Patient very anxious. Received Ativan and had significant improvement of pain which quickly reduced to a "1". Received GI cocktail and no noticeable difference. EKG unremarkable. As noted in HPI, negative workup and overnight stay a week ago on 04/16 Has been seeing ortho/PT about the shoulder and they feel that her chest pain episodes are related to her left shoulder. As precaution, chest xray/CBC/Chem/Trop/proBNP/Mg/DDimer performed and unremarkable. Call placed to [facility]/. She recommended a second troponin in 6 hours and if negative patient could be discharged home. Also recommended having pt undergo stress test for more complete rule out of any potential cardiac contributor. Second troponin normal. Patient's pain remained improved. She reported that left shoulder ROM altered during pain exacerbations. She plans on continued follow up with Ortho/PT. She is agreeable with stress testing. Precautions reviewed. To return over weekend if she has sudden acute problems. She does have a prescription for Ativan that was given to her by her primary that she can use if she feels increased anxiety. Departure - Departure Time of Disposition: 20:27 Disposition: Home, Self-Care 01 Condition: Good Clinical Impression: Atypical chest pain - Discharge Information *PRESCRIPTION DRUG MONITORING PROGRAM REVIEWED*: Not Applicable *COPY OF PRESCRIPTION DRUG MONITORING REPORT IN PATIENT JOSEPH: Not Applicable Referrals: Shanell Mckeon PA-C [Primary Care Provider] - Forms: ED Department Discharge Additional Instructions: Follow up with physical medicine/ortho for shoulder issues. Arrange stress testing next week with . Follow up as needed over the weekend if you develop sudden worsening symptoms. Sepsis Event Note (ED) - Focused Exam Vital Signs: Vital Signs Temp Pulse Resp BP Pulse Ox 04/24/21 13:51 86 20 119/73 100 04/24/21 13:46 36.4 C 86 20 111/80 100 04/24/21 13:19 82 20 116/73 100 04/24/21 13:05 84 20 115/73 100 04/24/21 12:41 20 117/70 100 - My Orders Last 24 Hours: My Active Orders 04/24/21 13:01 Chest 2V [CR] Stat 04/24/21 13:04 Saline Lock Insert [OM.PC] Routine - Assessment/Plan Last 24 Hours: My Active Orders 04/24/21 13:01 Chest 2V [CR] Stat 04/24/21 13:04 Saline Lock Insert [OM.PC] Routine
[2021-04-24 14:08] LABS: ANION GAP 12.2 meq/L (7-15); CHLORIDE,CL 107 mmol/L (98-107); SODIUM,NA 144 mmol/L (136-145)
== END 2021-04-24 20:30 | disposition home or self-care (01) ==
LOC: LL.ED 12:41
DX: R07.89 Other chest pain (principal); Z88.2 Allergy status to sulfonamides; Z88.5 Allergy status to narcotic agent
CPT/HCPCS: 36415; 71046; 80053; 81001; 83605; 83735; 83880; 84484; 85025; 85379; 93005; 93010; 96374; 99284; 99285-25; A9270-GY; J2060